=== PATIENT | male | born 1980 | race Caucasian/White ===

== ENCOUNTER 2022-11-25 20:49 | Emergency (ER) | payer SELFPAY ==
[~2022-11-25] VITALS: Ht 177.8 cm; Wt 90.7 kg
[2022-11-26 00:06] VITALS: BP 1340/90
== END 2022-11-25 23:35 | disposition home or self-care (01) ==
LOC: ED 20:49
DX: S00.81XA Abrasion of other part of head, initial encounter (principal); S00.31XA Abrasion of nose, initial encounter; X83.8XXA Intentional self-harm by other specified means, initial encounter
CPT/HCPCS: 90715; 99283